=== PATIENT | male | born 1975 | race Caucasian/White ===

== ENCOUNTER 2019-08-09 15:00 | Emergency (ER) | payer SELFPAY ==
[~2019-08-09] VITALS: Ht 182.9 cm; Wt 98.0 kg
[2019-08-09 15:42] VITALS: BP 132/92
[2019-08-09] MEDS ORDERED: BACITRACIN ZINC OINT UDPKT TOP ONE (17:45)
[2019-08-09] MEDS ORDERED: KETOROLAC 30MG/ML VIAL IM ONE (17:45)
[2019-08-09] MEDS ORDERED: LIDOCAINE HCL/PF 1% 10 MG/ML 5ML VIAL IJ ONE (17:45)
[2019-08-09] MEDS ORDERED: TETANUS, DIPHTHERIA, PERTUSSIS VAC/PF 0.5ML (>7YR OLD) IM ONE (18:15)
== END 2019-08-09 18:20 | disposition home or self-care (01) ==
LOC: ER 17:18
DX: S01.412A Laceration without foreign body of left cheek and temporomandibular area, initial encounter (principal); X58.XXXA Exposure to other specified factors, initial encounter; Y93.67 Activity, basketball; Y92.9 Unspecified place or not applicable
CPT/HCPCS: 12011; 70486; 96372; 99284; J1885; J3490; Z7610